=== PATIENT | male | born 1985 | race Caucasian/White ===

== ENCOUNTER 2018-02-10 13:34 | Emergency (ER) | payer OTHER ==
[2018-02-10] MEDS ORDERED: Ketorolac INJ* 30 MG/ML 1 ML VIAL IV PUSH ONE (13:53)
[2018-02-10 15:17] LABS: ABS Basophils 0.1 10^3/ul (0-0.2); ABS Eosinophils 0.1 10^3/ul (0-0.6); ABS Lymphocytes 1.8 10^3/ul (1.0-4.8); ABS Monocytes 0.7 10^3/ul (0-0.8); ABS Neutrophils 8.6 10^3/ul (1.5-7.7); ABS Nucleated RBC 0 10^3/ul; Eosinophil % 0.6 % (0-6); Hematocrit 45 % (42-52); Hemoglobin 14.7 g/dl (14.0-18.0); Lymphocyte % 16.1 % (25-47); Mean Corpuscular HGB Conc 33 g/dl (31-36); Mean Corpuscular Hemoglobin 28 pg (27-31); Mean Corpuscular Volume 85 fL (80-94); Nucleated Red Blood Cells % 0.1; Platelet Count 235 10^3/ul (150-450); Red Blood Count 5.22 10^6/ul (4.00-5.40); Red Cell Distribution Width 14 % (10.5-15); White Blood Count 11.3 10^3/ul (3.5-10.8)
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
[2018-02-10 15:28] LABS: EGFR Non-African American 78.7 (>60)
[2018-02-10] MEDS ORDERED: Iohexol 300* (CONTRAST) 10 ML SDV IV ONE (16:15)
[2018-02-10 16:27] VITALS: BP 123/74
--- NOTE | 2018-02-10 17:02 | RAD ---
Indication: Chest pain, upper abdominal pain. Contrast: Administered 100.2 ml of OMNIPAQUE 300 mg/ml CT of the chest, abdomen and pelvis was performed after oral and IV contrast administration. Coronal and sagittal reconstructed images were obtained. Inferior thyroid lobes are unremarkable. No mediastinal or hilar adenopathy is noted. The heart demonstrates no pericardial effusion. The trachea and major bronchi appear patent. The lung hidalgo demonstrate no evidence of alveolar consolidation. Some pleural-based calcification is noted in the left upper lobe posteriorly with pleural thickening noted. No focal nodules are identified. No alveolar consolidation is noted. Dependent changes are noted lung bases especially in the left. CT of the abdomen and pelvis demonstrates liver to be normal in size. No focal lesions or intrahepatic duct dilatation is noted. The gallbladder demonstrates no calcified gallstones. No pericholecystic fluid or wall thickening is identified. The pancreas demonstrates no mass or pancreatic duct dilatation. The spleen is normal in size. The common duct is not dilated. No adrenal masses are noted. The kidneys demonstrate symmetric nephrograms. No retroperitoneal lymphadenopathy is noted. No dilated loops of bowel are noted. CT of the pelvis demonstrates stool to be throughout the colon. No free fluid is identified. No hernias are noted. The bony structures are grossly unremarkable. IMPRESSION: No evidence of solid organ injury is noted. No fracture is identified. Lung hidalgo demonstrate no pulmonary nodules or pneumothorax. Dependent changes are noted in the left lung base. No evidence of free fluid is noted.
== END 2018-02-10 17:40 | disposition home or self-care (01) ==
LOC: ED 13:34
DX: R07.89 Other chest pain (principal); R10.9 Unspecified abdominal pain; V89.2XXA Person injured in unspecified motor-vehicle accident, traffic, initial encounter; Y92.9 Unspecified place or not applicable
CPT/HCPCS: 36415; 71260; 74177; 80053; 85025; 96374; 99283; J1885; Q9967